=== PATIENT | female | born 1975 | race Caucasian/White ===

== ENCOUNTER 2018-08-22 20:14 | Emergency (ER) | payer OTHER, SELFPAY ==
[2018-08-22 20:14] VITALS: BP 160/74; PULSE 125; RESP 22; TEMP 36.7; O2SAT 97; BMI 43.0
[2018-08-22 20:26] LABS: Bedside Glucose 78 mg/dL (70-110)
--- NOTE | 2018-08-22 20:26 | EKG12_ITS ---
Test Reason : NAUSEA Blood Pressure : / mmHG Vent. Rate : 117 BPM Atrial Rate : 117 BPM P-R Int : 150 ms QRS Dur : 092 ms QT Int : 348 ms P-R-T Axes : 053 002 019 degrees QTc Int : 485 ms Sinus tachycardia Minimal voltage criteria for LVH, may be normal variant Borderline ECG Confirmed by GLENN MORATAYA, MAYRA ([id number]), editor managing director JEFFERY SAENZ ([id number] on 08/25/2018 9:57:19 AM Referred By: MAITE Confirmed By:MAYRA ELIZABETH MD
[2018-08-22] MEDS: 0.9% Normal Saline 1,000 ML 999 ML IV (20:51)
[2018-08-22 21:03] VITALS: BP 127/75; PULSE 102; RESP 18; O2SAT 96
[2018-08-22 21:15] LABS: Bedside Glucose 214 mg/dL (70-110)
[2018-08-22 21:20] LABS: Absolute Lymphocyte Count 8.75 X10^3/ul (0.83-4.51); Absolute Neutrophil Count 7.9 X10^3/uL (2.0-7.7); Basophil# 0.07 X10^3/uL; Basophil% 0.4 % (0-1); Eosinophil# 0.18 X10^3/uL; Hematocrit 43.6 % (37-47); Hemoglobin 14.6 g/dl (12.0-15.0); Lymphocyte # 8.75 X10^3/ul (4.0); Lymphocyte % 48.5 % (19-41); Mean Corp Hgb Conc 33.5 g/gl (32-36); Mean Corpuscular Hgb 28.1 pg (27.0-32.0); Mean Corpuscular Volume 83.8 fL (81-99); Mean Platelet Vol. 11.4 fl (6.2-12.0); Monocyte# 1.09 X10^3/uL; Neutrophil # 7.92 X10^3/uL (2.7-7.7); Neutrophil % 43.9 % (47-70); Platelet Count 397 K/mm3 (150-450); RBC Distribution Width CV 15.2 % (11.6-14.6); RBC Distribution Width SD 46.1 fl (35.1-43.9); White Blood Count 18.1 K/mm3 (4.4-11.0)
[2018-08-22 21:23] LABS: Differential Indicated SCAN CRITERIA MET; POSITIVE COUNT NO; POSITIVE DIFFERENTIAL YES; POSITIVE MORPHOLOGY NO
[2018-08-22 21:24] LABS: Internal QC Validated? YES +Cl - CLEAR BKGD; Pregnancy, Serum, hCG Quali. NEGATIVE Negative
[2018-08-22 21:27] LABS: Anion Gap 6 (5-15); BUN 18 mg/dL (7-18); BUN/Creat Ratio 22.1 RATIO (10-20); Calcium,Total 9.6 mg/dL (8.5-10.1); Chloride 104 mmol/L (98-107); Creatinine, Serum 0.81 mg/dL (0.55-1.02); EST Glomerular Filtration Rate 81 mL/min (>60); Est Glom Filt Rate - Afr Amer 99 mL/min (>60); Estimated Creatinine Clearance 64.33 ml/min; Glucose 94 mg/dL (74-106); Potassium 3.2 mmol/L (3.5-5.1); Sodium Level 140 mmol/L (136-145)
[2018-08-22 21:35] LABS: AST(SGOT) 14 U/L (15-37); Alanine Aminotransfer ALT/SGPT 27 U/L (13-56); Alkaline Phosphatase 128 U/L (45-117); Globulin 4.3 g/dL (2.2-4.2); Protein, Total 8.3 g/dL (6.4-8.2)
[2018-08-22 21:49] LABS: Differential Comment SCANNED; Platelet Estimate ADEQUATE (ADEQ); Reactive Lymphocyte 1+
[2018-08-22 22:10] LABS: Bedside Glucose 120 mg/dL (70-110)
[2018-08-22] MEDS: 0.9% Normal Saline 1,000 ML 150 ML IV (22:18)
[2018-08-22] MEDS: Ondansetron 4 MG/2 ML Vial IV (22:18)
[2018-08-22 22:38] LABS: Bacteria 0 SEEN /hpf (None Seen); Mucous, Urine 0 SEEN /hpf (<or=2+); White Blood Cells 0 SEEN /hpf (0-5)
[2018-08-22 22:39] VITALS: BP 130/73; PULSE 98; RESP 16; O2SAT 97
--- NOTE | 2018-08-22 22:45 | ED.RN ---
CHECKED PT GLUCOSE PER DR. ARORA. SUGAR WAS 124 PT WAS SWEATY AND SAID SHE FELT LIKE IT WAS LOW. GAVE THE PT A APPLE JUICE AND A PEANUT BUTTER SANDWICH. DR. ARORA AWARE OF BLOOD SUGAR. WILL CONTINUE TO MONITOR PT.
--- NOTE | 2018-08-22 22:46 | RAD_ITS ---
STUDY: X-RAY CHEST REASON FOR EXAM: Female, 42 years old. SOB TECHNIQUE: Frontal and lateral views of the chest. COMPARISON: None. FINDINGS: The lungs are clear and expanded. There is no demonstrated pleural abnormality. Normal size heart. Normal mediastinum and torsten. Normal visualized pulmonary arteries. Normal visualized aortic arch and descending thoracic aorta. Normal visualized thoracic spine. Normal visualized ribs, clavicles, and shoulders. Cholecystectomy clips. RAD/Chest PA and Lateral IMPRESSION: No acute pulmonary findings. Electronically Signed: Nino Nick MD at 23:07 EDT Tel , Service support ,
[2018-08-22 22:57] LABS: D-Dimer Quantitative (DVT/PE) 0.41 FEU/ug/m (0.27-0.49)
[2018-08-22 22:58] LABS: Color, Urine Yellow (Yellow); Glucose, Dipstick 1000 mg/dl (Normal); Ketone-Dipstick 5 mg/dl (Negative); Leukocyte Esterase-Dipstick 25 /ul (Negative); Nitrite-Dipstick Negative (Negative); Occult Blood-Urine Negative /ul (Negative); Protein-Dipstick 30 mg/dl (Negative); Specific Gravity, Urine 1.015 (1.002-1.030); Urine Bilirubin Dipstick Negative (Negative); Urine Clarity Clear (Clear); Urine Urobilinogen Normal (Normal); Urine pH 6.5 (5.0 - 8.0)
[2018-08-22 23:01] LABS: Red Blood Cells-Urine 0-5 SEEN /hpf (0-5); Squamous Epithelial Cells - UA 0-5 SEEN /hpf (5-10)
[2018-08-22 23:39] VITALS: BP 103/55; PULSE 92; RESP 16; O2SAT 96
--- NOTE | 2018-08-22 23:44 | ED.VISSUMM ---
- ER Visit Summary Date of Service: 08/22/18 Chief Complaint: Nausea, diaphoresis History of Present Illness: The patient is a 42 F who did not feel well all day today. 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 She is tachycardic and sweaty on arrival to triage. Patient is a diabetic. She was recently started on NovoLog because her blood sugars been running high. She did take insulin about an hour prior to feeling ill tonight. She is her blood sugars were in the 340s and dropped to the 70s. She did have some chest tightness and shortness of breath that has since improved. Physical Examination: Vital signs unremarkable the time of my exam. Patient sitting upright in bed. Heart is regular rate and rhythm. Lung sounds are clear. Abdomen is soft nontender. Skin examination reveals no rash or lesions. Line neuro exam reveals no focal neuro deficits. Test Results: EKG is sinus tach at 117 with no sign of acute ischemia. Two-view chest x-ray is normal. CBC was a white count of 18.1 with predominant lymphocyte count. Chemistry studies reveal mild hypokalemia with potassium 3.2. LFTs significant only for an alk phos of 128. Urinalysis shows 2000 and glucose but no sign of acute infection. Troponin is less than 0.015. D-dimer 0.41. test negative. Influenza swab is negative. Emergency Department Course and Treatment: Patient's blood sugar was 78 when she arrived in triage. She was given orange juice and some peanut butter. Blood sugar then went up to 214. At the time of my exam blood sugar was 120 and she was starting to feel sweaty again. She is given IV fluids, Zofran, and p.o. diet. At this time patient is resting comfortably. She has some mild nausea and a headache. Test results were discussed with her in detail. My suspicion is that she started to feel quite ill and became diaphoretic secondary to the rapid fluctuation in her blood sugar. She will be given Toradol and Zofran for her headache at this time. She will be discharged home. Treatment Plan: [] Disposition: Discharge Impression: 1. Viral syndrome 2. Blood sugar fluctuations This note was generated with [employer] dictation software. It may contain incorrect words, spelling, and punctuation that were not noted in review of the chart prior to signing ED Disposition - Plan for ED Patient: Disposition: Home or Assisted Living Instructions: ED Viral Syndrome Prescriptions: Ondansetron [Zofran Odt] 4 mg PO Q8H PRN PRN #10 tablet PRN Reason: Nausea Referrals: Jackie Iniguez DO [Primary Care Provider] - 3-5 Days if not improving
[2018-08-23] VITALS: BP 101/52; PULSE 85; RESP 17; O2SAT 95
[2018-08-23] MEDS: Ketorolac 30 MG/ML Syringe IV
[2018-08-23] MEDS: Ondansetron 4 MG/2 ML Vial IV
[2018-08-23 00:27] VITALS: BP 101/52; PULSE 86; RESP 16
== END 2018-08-23 00:32 | disposition home or self-care (01) ==
PROVIDERS: Emergency Provider Emergency Medicine; Family Provider Internal Medicine; PCP Internal Medicine
DX: B34.9 Viral infection, unspecified (principal); E11.9 Type 2 diabetes mellitus without complications; Z79.4 Long term (current) use of insulin; F32.9 Major depressive disorder, single episode, unspecified; Z72.0 Tobacco use
CPT/HCPCS: 71046; 80048; 80076; 81001; 82962; 84484; 84703; 85025; 85379; 87804; 93005; 96361; 96374; 96375; 99284; J7030; A4216; J2405

== ENCOUNTER 2018-12-20 07:31 | Day surgery (SDC) | payer OTHER, SELFPAY ==
[2018-12-19 13:28] VITALS: BMI 44.7
[2018-12-19 17:03] LABS: Anion Gap 9 (5-15); BUN 12 mg/dL (7-18); BUN/Creat Ratio 14.2 RATIO (10-20); Calcium,Total 8.6 mg/dL (8.5-10.1); Chloride 105 mmol/L (98-107); Creatinine, Serum 0.85 mg/dL (0.55-1.02); EST Glomerular Filtration Rate 78 mL/min (>60); Est Glom Filt Rate - Afr Amer 94 mL/min (>60); Glucose 296 mg/dL (74-106); Potassium 4.4 mmol/L (3.5-5.1); Sodium Level 139 mmol/L (136-145)
[2018-12-19 17:10] LABS: International Normalized Ratio 0.9; Prothrombin Time (Protime)PT. 12.2 SECONDS (11.7-14.9)
[2018-12-19 17:11] LABS: Partial Thromboplast Time 27.7 Seconds (24.1-36.2)
[2018-12-19 17:16] LABS: Absolute Lymphocyte Count 2.54 X10^3/uL (0.83-4.51); Absolute Neutrophil Count 6.7 X10^3/uL (2.0-7.7); Basophil# 0.06 X10^3/uL; Basophil% 0.6 % (0-1); Eosinophil# 0.08 X10^3/uL; Eosinophils% 0.8 % (0-5); Hematocrit 38.9 % (37-47); Hemoglobin 12.4 g/dL (12.0-15.0); Lymphocyte # 2.54 X10^3/ul (4.0); Lymphocyte % 25.2 % (19-41); Mean Corp Hgb Conc 31.9 g/dL (32-36); Mean Corpuscular Hgb 27.1 pg (27.0-32.0); Mean Corpuscular Volume 85.1 fL (81-99); Mean Platelet Vol. 11.7 fl (6.2-12.0); Monocyte# 0.64 X10^3/uL; Monocyte% 6.3 % (0-10); NRBC Flagged by Analyzer 0 % (0-5); Neutrophil # 6.72 X10^3/uL (2.7-7.7); Neutrophil % 66.7 % (47-70); Platelet Count 336 K/mm3 (150-450); RBC Distribution Width CV 14.6 % (11.6-14.6); RBC Distribution Width SD 45.1 fl (35.1-43.9); Red Blood Count 4.57 M/mm3 (4.2-5.4); White Blood Count 10.1 K/mm3 (4.4-11.0)
[2018-12-20 06:49] VITALS: BMI 45.7
[2018-12-20 07:54] LABS: Internal QC Validated? YES +Cl - CLEAR BKGD; Pregnancy, Serum, hCG Quali. NEGATIVE Negative
--- NOTE | 2018-12-20 11:59 | CL.D_ITS ---
Patient Name: GOLDEN CULP Study Date: 12/20/2018 Performing: Christa Osuna MD Ht: 59.84 inches 152 cm : 1975 Wt: 226.79 lbs 102.87 kg Age: 43 Gender: female BSA: 1.97 PROCEDURE(S) PERFORMED GE95-MKU/COR/LV CLINICAL PROFILE AND INDICATIONS Indications: Suspected CAD Heart Failure: None Stress/Imaging Stress Test w/SPECT MPI: Yes Result: NegativeStress Test with SPECT MPI: Negative CAD Presentations: Unstable angina. CONCLUSIONS Non obstructive coronary arteries. Preserved EF. No significant or MR RECOMMENDATIONS DESCRIPTION OF PROCEDURE The patient arrived to the procedure lab. The risks and benefits of the procedure as well as a full d escription of our services here and current unavailability of surgical backup were fully explained to the patient and/or their significant other prior to the catheterization. The Timeout was completed, verifying the correct patient and procedure. The patient's procedural site was prepped and draped in the usual fashion. Local anesthetic was given subcutaneously to right radial region with Lidocaine 2% . Using a modified Seldinger technique, arterial access was obtained via the right radial artery, a 6 Fr sheath was inserted. LV to AO pullback pressures were then recorded. Left Coronary Artery selecti ve angiography was performed in multiple views using a 5 Fr. JL3.5 catheter. Left Ventriculography wa s performed in BILLS projection using a 5 Fr. JR 4.0. Right Coronary Artery selective angiography was t hen performed in multiple views using a 5 Fr. JR 4 catheter.The arterial sheath was pulled and a TR Band was applied for hemostasis 10 air inserted CORONARY ANGIOGRAPHY DOMINANCE: Right Dominant LEFT HEART ASSESSMENT Left Ventricular Ejection Fraction: by LV Gram 60 % Normal LV wall motion LEFT MAIN: Mild luminal irregularities LEFT ANTERIOR DESCENDING ARTERY: Mild luminal irregularities CIRCUMFLEX ARTERY: Mild luminal irregularities RIGHT CORONARY ARTERY: mild diffuse disease VALVE FINDINGS: No Aortic Valve Stenosis No Mitral Insufficency COMPLICATIONS No Complications PROCEDURE MEDICATIONS Fentanyl 50 mcg IV Versed 1 mg IV Oxygen: 2 L/min via nasal cannula Heparin given IA 12/20/2018 11:23:26 Verapamil 2.5mg, Ntg 100mcgs, 2000 units of Heparin given IA 12/20/2018 11:23:26 SUMMARY OF HEMODYNAMIC DATA Time AIR REST ECG 08:09:13 LV 138/-3, 23 11:26:30 LV 129/-2, 18 11:27:09 LVp 145/-6, 25 11:27:20 AOp 133/76 (98) 11:27:25 AO 111/81 (95) SA 11:28:39 Signed By Christa Osuna MD On 12/20/2018 11:58:37 AM Christa Osuna MD
== END 2018-12-20 13:30 | disposition home or self-care (01) ==
LOC: CLSP 07:33
PROVIDERS: Family Provider Internal Medicine; PCP Internal Medicine; Referring Provider Specialist; Visit Provider Specialist
DX: R07.9 Chest pain, unspecified (principal); R06.02 Shortness of breath; R53.83 Other fatigue; F41.9 Anxiety disorder, unspecified; E11.9 Type 2 diabetes mellitus without complications; R53.82 Chronic fatigue, unspecified; E28.2 Polycystic ovarian syndrome; F17.200 Nicotine dependence, unspecified, uncomplicated
CPT/HCPCS: 36415; 80048; 84703; 85025; 85610; 85730; 93458; 99152; 99153; J7040; Q9967; C1769; C1894

== ENCOUNTER 2019-04-01 15:30 | Emergency (ER) | payer OTHER, SELFPAY ==
[2019-01-25 13:07] VITALS: BMI 44.1
[2019-04-01 15:31] VITALS: BP 143/86; PULSE 105; RESP 20; TEMP 36.9; O2SAT 97; BMI 40.4
--- NOTE | 2019-04-01 16:04 | ED.VISSUMM ---
- ER Visit Summary Date of Service: 04/01/19 Chief Complaint: Right labial abscess History of Present Illness: The patient is a 43 F history of insulin-dependent diabetes, polycystic ovarian syndrome and abscesses. Since Wednesday almost a week ago she is had an abscess in her right labial area. On Wednesday she went to a local emergency department they attempted to I&D this and were unsuccessful. They started on antibiotics Bactrim and Keflex. She said it has not made much improvement. He denies any fever. No chills. Physical Examination: Middle-aged female no acute distress. present in the room. Vital signs are stable afebrile. She does not look septic or toxic. HEENT exam unremarkable. Lungs clear to auscultation. Heart regular rhythm no murmur. Abdomen is soft and nontender. Normal bowel sounds no peritoneal signs. She is moving all 4 extremities. Neurovascular intact. Skin is unremarkable. External exam with her present in room and she has a firm indurated area of her right labia consistent with a labial abscess except it is hard there is no fluctuance at all. There is no cellulitis. There is no necrotizing breakdown of the skin. Not warm to the touch. There is no bleeding. There is an area where there was an incision previously. Which is healed. Test Results: None Emergency Department Course and Treatment: History and exam are consistent with a right labial abscess but currently is not fluctuant there is already been 1 unsuccessful I&D. She is already on antibiotics both Keflex and Bactrim. She will continue with those. And follow-up with a local experimental mechanic electrical for further evaluation and possible resection. Treatment Plan: [place] for pain. Motrin. Warm soaks. Continue the Keflex and Bactrim. Follow-up with a local RATE EXAMINER. Disposition: Discharge Impression: Right labia majora abscess This note was generated with [employer] dictation software. It may contain incorrect words, spelling, and punctuation that were not noted in review of the chart prior to signing ED Disposition - Plan for ED Patient: Referrals: Jackie Iniguez DO [Primary Care Provider] -
--- NOTE | 2019-04-01 16:08 | ED.DEP ---
ED Disposition - Plan for ED Patient: Disposition: Home or Assisted Living Instructions: [facility] (I and D) Prescriptions: Hydrocodone/Acetaminophen [[place] 10-325 Tablet] 1 ea PO Q4H PRN PRN #14 tab PRN Reason: Pain Or Fever Prescription Printed Referrals: Luanne Mendiola MD [STAFF PHYSICIAN] - As soon as possible Additional Instructions: Warm compresses or soaks to the area. Motrin and limited [place] for pain. Continue both your Keflex and Bactrim. Follow-up with a local CUSTOMER SOLUTIONS COORDINATOR physician or the physician that you were previously referred to. This may need formal surgical resection. At this time there is nothing to really incise and drain.
[2019-04-01 16:20] VITALS: RESP 18
== END 2019-04-01 16:25 | disposition home or self-care (01) ==
PROVIDERS: Emergency Provider Emergency Medicine; Family Provider Internal Medicine; PCP Internal Medicine
DX: N76.4 Abscess of vulva (principal); E11.9 Type 2 diabetes mellitus without complications; Z79.4 Long term (current) use of insulin; E28.2 Polycystic ovarian syndrome
CPT/HCPCS: 99282

== ENCOUNTER 2019-04-22 22:10 | Emergency (ER) | payer OTHER, SELFPAY ==
[2019-04-22 22:11] VITALS: BP 133/80; PULSE 93; RESP 18; TEMP 36.8; O2SAT 96; BMI 44.3
--- NOTE | 2019-04-22 22:26 | EKG12_ITS ---
Test Reason : HYPERGLYCEMIA Blood Pressure : / mmHG Vent. Rate : 090 BPM Atrial Rate : 090 BPM P-R Int : 146 ms QRS Dur : 090 ms QT Int : 372 ms P-R-T Axes : 057 045 037 degrees QTc Int : 455 ms Normal sinus rhythm Normal ECG Confirmed by JEAN CLAUDE MORATAYA, JOHN ([id number]), city editor CASSANDRA KOENIG ([id number]) on 04/25/2019 10:03:08 AM Referred By: DC Confirmed By:JOHN SILVERIO MD
--- NOTE | 2019-04-22 22:30 | RAD_ITS ---
HISTORY:high blood sugar, bilateral rib pain high blood sugar, bilateral rib pain EXAMINATION/TECHNIQUE: XR Chest 1 View: COMPARISON: August 22, 2018 FINDINGS: LINES/DEVICES: None. LUNGS: No consolidation, edema or effusion. No pneumothorax. MEDIASTINUM AND CARDIOVASCULAR STRUCTURES: Cardiac silhouette not enlarged. Central airways and mediastinal contour are unremarkable. BONES AND SOFT TISSUES: Unremarkable. RAD/Chest 1 View (Portable) IMPRESSION: No radiographic evidence of acute cardiopulmonary disease. at 2310 Reported and signed by: Joeclynn Che DO Electronically Signed: Jocelynn Che DO at 23:09 EST Tel , Service support ,
[2019-04-22 22:36] LABS: Bedside Glucose > 500 mg/dL (70-110)
[2019-04-22 22:39] LABS: Absolute Lymphocyte Count 3.31 X10^3/uL (0.83-4.51); Absolute Neutrophil Count 5.1 X10^3/uL (2.0-7.7); Basophil# 0.06 X10^3/uL; Basophil% 0.7 % (0-1); Eosinophil# 0.12 X10^3/uL; Eosinophils% 1.3 % (0-5); Hematocrit 36.7 % (37-47); Hemoglobin 11.6 g/dL (12.0-15.0); Lymphocyte # 3.31 X10^3/ul (4.0); Lymphocyte % 36.1 % (19-41); Mean Corp Hgb Conc 31.6 g/dL (32-36); Mean Corpuscular Hgb 25.7 pg (27.0-32.0); Mean Corpuscular Volume 81.4 fL (81-99); Mean Platelet Vol. 11.3 fl (6.2-12.0); Monocyte% 6.5 % (0-10); NRBC Flagged by Analyzer 0 % (0-5); Neutrophil # 5.06 X10^3/uL (2.7-7.7); Neutrophil % 55.1 % (47-70); Platelet Count 321 K/mm3 (150-450); RBC Distribution Width SD 47.7 fl (35.1-43.9); Red Blood Count 4.51 M/mm3 (4.2-5.4); White Blood Count 9.2 K/mm3 (4.4-11.0)
[2019-04-22 22:45] LABS: Internal QC Validated? YES +Cl - CLEAR BKGD; Pregnancy, Serum, hCG Quali. NEGATIVE Negative
[2019-04-22] MEDS: 0.9% Normal Saline 1,000 ML 999 ML IV ×2 (22:58→23:47)
[2019-04-22] MEDS: Insulin Lispro 100 UNIT/ML INSULN.PEN 8 UNIT SC (22:58)
[2019-04-22 23:02] LABS: Anion Gap 9 (5-15); BUN 12 mg/dL (7-18); BUN/Creat Ratio 13.3 RATIO (10-20); Calcium,Total 8.9 mg/dL (8.5-10.1); Chloride 102 mmol/L (98-107); EST Glomerular Filtration Rate 72 mL/min (>60); Est Glom Filt Rate - Afr Amer 88 mL/min (>60); Glucose 500 mg/dL (74-106); Potassium 3.9 mmol/L (3.5-5.1); Sodium Level 136 mmol/L (136-145)
[2019-04-22 23:46] LABS: Bedside Glucose 433 mg/dL (70-110)
--- NOTE | 2019-04-23 00:30 | ED.DCSUM_ITS ---
- ER Visit Summary Date of Service: 04/23/19 Chief Complaint: Not feeling well History of Present Illness: The patient is a 43 F who is not feeling well today. She has a headache, malaise, and bilateral rib pain. Her blood sugar was 585. She does have a history of diabetes. She takes Janumet, glipizide, and Lantus. She took her Lantus yesterday evening, 15 units. She said her sugar normally only runs about 218 max. She does not take sliding scale or short acting insulin as she gets hypoglycemic. No other associated symptoms or issues. Physical Examination: Afebrile and vital signs unremarkable. Head and neck atraumatic. Cranial nerves grossly intact. Heart regular. Lungs clear. Abdomen soft. Skin normal. No focal or lateralizing neurologic abnormalities grossly. Test Results: EKG shows sinus rhythm at a rate of 90. Troponin negative. Chest x-ray showed nothing acute. Hemoglobin 11.6. Glucose 500. Anion gap normal. Ketones negative. hCG negative. Emergency Department Course and Treatment: Patient was treated with a fluid bolus as well as lispro subcutaneous. I suspect her symptoms are related to her hypoglycemia. She may also be coming down with something that is causing her to be hyperglycemic. She has no specific symptoms of any other illness. On reevaluation, blood sugar is in the 430s. She feels slightly better. She declined any pain medicine. We will recheck her glucose after the second bolus. She is hyperglycemic but otherwise her work-up is reassuring. There is no indication for further diagnostic testing. If her repeat glucose is in the 200s, she may be di scharged. She may resume her home medication. She should follow-up with her primary doctor for further outpatient management. The oncoming doctor will recheck her. She may require additional fluids and or insulin. Final disposition is pending at the time of this dictation. Treatment Plan: As above Disposition: Discharge pending blood sugar control Impression: 1. Hyperglycemia This note was generated with [employer] software. It may contain incorrect words, spelling, and punctuation that were not noted in review of the chart prior to signing ED Disposition - Plan for ED Patient: Referrals: Jackie Iniguez DO [Primary Care Provider] -
--- NOTE | 2019-04-23 00:33 | ED.DEP ---
ED Disposition - Plan for ED Patient: Instructions: ED Diabetic Hyperglycemia Referrals: Jackie Iniguez DO [Primary Care Provider] -
[2019-04-23 00:40] VITALS: BP 145/84; PULSE 84; RESP 20; O2SAT 95
[2019-04-23 00:41] LABS: Bedside Glucose 328 mg/dL (70-110)
[2019-04-23] MEDS: Insulin Lispro 100 UNIT/ML INSULN.PEN SC (00:42)
[2019-04-23] MEDS: 0.9% Normal Saline 1,000 ML 999 ML IV (00:52)
[2019-04-23 02:20] VITALS: BP 150/88; PULSE 85; RESP 16; O2SAT 93
[2019-04-23 02:36] LABS: Bedside Glucose 228 mg/dL (70-110)
[2019-04-23 02:41] VITALS: BP 116/60; PULSE 91; RESP 16; O2SAT 99
== END 2019-04-23 02:42 | disposition home or self-care (01) ==
LOC: ED 22:43
PROVIDERS: Emergency Provider Emergency Medicine; Family Provider Internal Medicine; PCP Internal Medicine
DX: E11.65 Type 2 diabetes mellitus with hyperglycemia (principal); F41.9 Anxiety disorder, unspecified; E28.2 Polycystic ovarian syndrome; Z87.19 Personal history of other diseases of the digestive system; Z79.4 Long term (current) use of insulin; Z79.84 Long term (current) use of oral hypoglycemic drugs; Z79.899 Other long term (current) drug therapy
CPT/HCPCS: 71045; 80048; 82009; 82962; 84484; 84703; 85025; 93005; 96360; 96361; 99284; J7030; A4216

== ENCOUNTER 2019-05-11 17:15 | Emergency (ER) | payer OTHER, SELFPAY ==
[2019-05-11 17:16] VITALS: BP 137/82; PULSE 96; RESP 15; TEMP 36.6; O2SAT 97; BMI 42.6
[2019-05-11 17:29] VITALS: O2SAT 16
[2019-05-11] MEDS: Clindamycin HCl 150 MG Capsule 450 MG PO (17:45)
--- NOTE | 2019-05-11 19:15 | ED.DCSUM_ITS ---
- ER Visit Summary Date of Service: 05/11/19 Chief Complaint: Abscess History of Present Illness: The patient is a 43 F with history of diabetes. Presents with a right labial abscess for 2 days. She has a history of pilonidal cyst. Physical Examination: Exam was chaperoned by Natalie AKHTAR. She has a right labial abscess approximately 5 x 2 cm. This does not involve the vagina or other structures. She has some induration to her sacral region without fluctuance or redness. Rectal exam was unremarkable for abscess, mass, or drainage. Test Results: None indicated Emergency Department Course and Treatment: I&D was performed of the right labial abscess. Pus was expressed. Wound was dressed. She was treated with clindamycin. Regarding the induration at her sacral region. She has a history of pilonidal cyst. There is some induration without fluctuance. I suspect that she has some scar tissue or chronic skin changes. I do not believe this is amenable to drainage in the ED. Patient will watch her blood sugars. Treat with clindamycin. Soaks. Follow-up with SHELLFISH DREDGE OPERATOR. Return for any new or worsening issues. Treatment Plan: As above Disposition: Discharge Impression: 1. Right labial abscess This note was generated with [employer] dictation software. It may contain incorrect words, spelling, and punctuation that were not noted in review of the chart prior to signing ED Disposition - Plan for ED Patient: Referrals: Jackie Iniguez DO [Primary Care Provider] -
[2019-05-11 19:16] VITALS: RESP 16
--- NOTE | 2019-05-11 19:17 | ED.DEP ---
ED Disposition - Plan for ED Patient: Instructions: ABSCESS, Incision and Drainage Prescriptions: Clindamycin [Cleocin] 300 mg PO 4X/DAY #80 cap Prescription Printed Referrals: Jackie Iniguez DO [Primary Care Provider] -
== END 2019-05-11 19:25 | disposition home or self-care (01) ==
LOC: ED 17:58
PROVIDERS: Emergency Provider Emergency Medicine; PCP Internal Medicine; Referring Provider Internal Medicine
DX: N76.4 Abscess of vulva (principal); E11.9 Type 2 diabetes mellitus without complications; Z72.0 Tobacco use; Z79.4 Long term (current) use of insulin
CPT/HCPCS: 56405; 99283

== ENCOUNTER 2019-06-24 15:38 | Emergency (ER) | payer OTHER, SELFPAY ==
[2019-06-24 15:39] VITALS: BP 148/83; PULSE 108; RESP 18; TEMP 36.6; O2SAT 98; BMI 41.3
[2019-06-24 15:41] VITALS: BP 148/83; PULSE 108; RESP 18; TEMP 36.6; O2SAT 98
--- NOTE | 2019-06-24 15:56 | ED.VIS.URI ---
History of Present Illness <LiamFortunatoAbelardo - Last Filed: 06/24/19 17:34> Informant: Patient, Significant Other Onset: Weeks - 1 week Context: Gradual Onset Timing: Continuous Quality: aching Location: myalgias Current Severity: Moderate Maximum Severity: Moderate Worsened by: Swallowing Relieved by: Tylenol, NSAIDs Associated Symptoms: Nasal Congestion, Headache, Myalgias, Nausea, Nonproductive cough. Negative for: Vomiting, Diarrhea, Shortness of Breath, Chest Pain, Hemoptysis, Productive Cough Narrative: 43-year-old female history of insulin-dependent diabetes presents with nausea, headache, nonproductive cough, sore throat and myalgias for the last 1 week. She is actually a local emergency service worker. She has been using [id number] remedies without improvement. She has not had chest pain or shortness of breath. She is not lightheaded or dizzy. Denies nausea vomiting or diarrhea. Sugars have been slightly elevated with most recent one this morning being 290. She has had many sick contacts. Rest of review of systems negative Prior similar symptoms: No Recent Illness/Hospitalization: No <Darek Cruz - Last Filed: 06/24/19 17:40> Chief Complaint: General Illness Past Medical History <Abelardo Wheeler - Last Filed: 06/24/19 17:34> Prior records reviewed: Yes Past Medical History: - - Hypertension, hyperlipidemia, GERD, insulin-dependent diabetes Surgical History: no surgical history Lives: With Family Smoking Status: Former smoker Alcohol: Occasional Drugs: None <Darek Cruz - Last Filed: 06/24/19 17:40> - Allergies and Home Meds Allergies/Adverse Reactions: Allergies acetaminophen [From Percocet] Allergy (Intermediate, Verified 06/24/19 15:41) Rash cefaclor [From Ceclor] Allergy (Intermediate, Verified 06/24/19 15:41) Rash hydrocodone [From Vicodin] Allergy (Intermediate, Verified 06/24/19 15:41) Rash oxycodone [From Percocet] Allergy (Intermediate, Verified 06/24/19 15:41) Rash Primary Care Physician: Jackie Iniguez DO [Primary Care Provider] - 10-14 Days if not better Review of Systems All systems negative except as indicated General: Reports: Chills, Fever, Malaise Eyes: Denies: Visual changes - bilaterally, Blurred Vision - bilaterally, Diplopia ENT: Reports: Rhinorrhea, Sore throat Cardiovascular: Denies: Chest pain, Palpitations, Heart racing Respiratory: Reports: Cough. Denies: Dyspnea, Dyspnea on exertion, Orthopnea, Paroxysmal nocturnal dyspnea Gastrointestinal: Denies: Abdominal pain, Nausea, Vomiting, Diarrhea, Constipation Genitourinary: Denies: Dysuria, Hematuria, Frequency Musculoskeletal: Reports: Myalgias. Denies: Arthralgias, Neck pain, Back pain, Swelling, Extremity Pain Skin: Denies: Rash, Abscess, Abrasions, Wounds Neurological: Reports: Headache. Denies: Weakness, Parasthesia Hematologic: Denies: Easy bruising, Easy bleeding <Darek Cruz - Last Filed: 06/24/19 17:40> Physical Exam Vital Signs/Narrative: Vital Signs Temp Pulse Resp BP Pulse Ox 06/24/19 16:41 98.1 F 105 H 18 98 06/24/19 15:41 97.9 F 108 H 18 148/83 H 98 06/24/19 15:39 97.9 F 108 H 18 148/83 H 98 <Abelardo Wheeler - Last Filed: 06/24/19 17:34> Vital Signs/Narrative: Vital Signs Temp Pulse Resp BP Pulse Ox 06/24/19 15:41 97.9 F 108 H 18 148/83 H 98 06/24/19 15:39 97.9 F 108 H 18 148/83 H 98 Inital Vital Signs reviewed: Yes General: Well nourished, Well developed Head: Normocephalic, Atraumatic Eyes: Perrl, EOMI Ears: Normal external canal, TM's clear Nose: Normal Inspection, No Rhinorrhea Mouth/Throat: Airway Patent, Posterior Oropharyngeal Erythema Neck: Supple, Nontender, No Lymphadenopathy, No Meningismus Cardiovascular: Regular rate, Regular rhythm, No murmurs Respiratory: No distress, CTA bilaterally, Chest nontender Abdomen: Soft, Nontender, Nondistended, Normal bowel sounds, No masses Back: Nontender, Normal Inspection Extremities: Nontender, No edema Skin: Normal color, No rash, No Trauma Neurological: Alert, Oriented x3, Cranial nerves II-XII grossly intact, Normal Strength, Normal Sensation Psychological: Normal affect, Normal Mood <Darek Cruz - Last Filed: 06/24/19 17:40> Diagnostic/Tx/Re-eval Impressions Chest X-Ray 06/24/19 15:57 IMPRESSION: Normal x-ray examination of the chest. Electronically Signed: Oz Harper, at 16:16 EST Tel , Service support , 06/24/19 15:57 Chest 1 View (Portable) [RAD] Stat Laboratory Results 06/24/19 06/24/19 06/24/19 16:05 16:05 16:38 WBC 9.7 RBC 5.14 Hgb 13.7 Hct 43.1 MCV 83.9 MCH 26.7 L MCHC 31.8 L RDW Std Deviation 51.0 H RDW Coeff of Nidhi 16.6 H Plt Count 404 MPV 10.4 Immature Gran % (Auto) 0.400 Neut % (Auto) 56.8 Lymph % (Auto) 35.7 Walker % (Auto) 5.7 Eos % (Auto) 0.9 Baso % (Auto) 0.5 Absolute Neuts (auto) 5.5 Absolute Lymphs (auto) 3.47 Nucleated RBC % 0 Sodium 141 Potassium 4.1 Chloride 110 H Carbon Dioxide 27.0 Anion Gap 4 L BUN 9 Creatinine 0.72 Estim Creat Clear Calc 71.62 Est GFR (MDRD) Af Amer 113 Est GFR (MDRD) Non-Af 93 BUN/Creatinine Ratio 12.5 Glucose 89 Calcium 9.3 Urine Color Yellow Urine Clarity Clear Urine pH 7.0 Ur Specific Advance 1.015 Urine Protein 15 H Urine Glucose (UA) 1000 H Urine Ketones 5 H Urine Occult Blood Negative Urine Nitrite Negative Urine Bilirubin Negative Urine Urobilinogen 1 H Ur Leukocyte Esterase Negative Urine RBC 0 SEEN Urine WBC 0 SEEN Ur Squamous Epith Cells 0-5 SEEN Urine Bacteria 0 SEEN Urine Mucus 0 SEEN - Medical Decision Making Seen and evaluated independently and in conjunction with physician administrative assistant. Agree with notes above unless documented otherwise. Lungs clear to auscultation throughout. After treatment, patient is feeling better, still just malaised. Her headache is better. She was hydrated, her work-up is unremarkable. Suspect she has a viral syndrome other than influenza given the duration of symptoms for 1.5 weeks. Supportive care advised and hydration, we discussed reasons to return and she is comfortable with that plan given a work note at discharge. <Abelardo Wheeler - Last Filed: 06/24/19 17:34> ED Disposition <Abelardo Wheeler - Last Filed: 06/24/19 17:34> <Darek Cruz - Last Filed: 06/24/19 17:40> - Plan for ED Patient: Disposition: Home or Assisted Living Diagnosis: Viral syndrome Instructions: VIRAL SYNDROME (Adult) Referrals: Jackie Iniguez, DO [Primary Care Provider] - 10-14 Days if not better
--- NOTE | 2019-06-24 15:57 | RAD_ITS ---
STUDY: X-RAY CHEST REASON FOR EXAM: Female, 43 years old. FEVER, COUGH, WEAKNESS, FATIGUE TECHNIQUE: Portable chest COMPARISON: 04/22/2019. FINDINGS: The lungs are clear and expanded. There is no demonstrated pleural abnormality. Normal size heart. Normal mediastinum and torsten. Normal visualized pulmonary arteries. Normal visualized aortic arch and descending thoracic aorta. Normal visualized thoracic spine. Normal visualized ribs, clavicles, and shoulders. There is no demonstrated abnormality of the visualized soft tissue structures of the upper abdomen. RAD/Chest 1 View (Portable) IMPRESSION: Normal x-ray examination of the chest. Electronically Signed: Oz Harper, at 16:16 EST Tel , Service support ,
[2019-06-24 16:14] LABS: Absolute Lymphocyte Count 3.47 X10^3/uL (0.83-4.51); Absolute Neutrophil Count 5.5 X10^3/uL (2.0-7.7); Basophil# 0.05 X10^3/uL; Basophil% 0.5 % (0-1); Eosinophil# 0.09 X10^3/uL; Eosinophils% 0.9 % (0-5); Hematocrit 43.1 % (37-47); Hemoglobin 13.7 g/dL (12.0-15.0); Lymphocyte # 3.47 X10^3/ul (4.0); Lymphocyte % 35.7 % (19-41); Mean Corp Hgb Conc 31.8 g/dL (32-36); Mean Corpuscular Hgb 26.7 pg (27.0-32.0); Mean Corpuscular Volume 83.9 fL (81-99); Mean Platelet Vol. 10.4 fl (6.2-12.0); Monocyte# 0.55 X10^3/uL; Monocyte% 5.7 % (0-10); NRBC Flagged by Analyzer 0 % (0-5); Neutrophil # 5.51 X10^3/uL (2.7-7.7); Neutrophil % 56.8 % (47-70); Platelet Count 404 K/mm3 (150-450); RBC Distribution Width CV 16.6 % (11.6-14.6); Red Blood Count 5.14 M/mm3 (4.2-5.4); White Blood Count 9.7 K/mm3 (4.4-11.0)
[2019-06-24] MEDS: 0.9% Normal Saline 1,000 ML 999 ML IV ×2 (16:15→17:38)
[2019-06-24] MEDS: DiphenhydrAMINE 50 MG/ML Syringe IV (16:16)
[2019-06-24] MEDS: Ketorolac 30 MG/ML Syringe IV (16:16)
[2019-06-24] MEDS: Metoclopramide 10 MG/2 ML Vial IV (16:16)
[2019-06-24 16:31] LABS: Anion Gap 4 (5-15); BUN 9 mg/dL (7-18); BUN/Creat Ratio 12.5 RATIO (10-20); Calcium,Total 9.3 mg/dL (8.5-10.1); Chloride 110 mmol/L (98-107); Creatinine, Serum 0.72 mg/dL (0.55-1.02); EST Glomerular Filtration Rate 93 mL/min (>60); Est Glom Filt Rate - Afr Amer 113 mL/min (>60); Estimated Creatinine Clearance 71.62 ml/min; Glucose 89 mg/dL (74-106); Potassium 4.1 mmol/L (3.5-5.1); Sodium Level 141 mmol/L (136-145)
[2019-06-24 16:41] VITALS: PULSE 105; RESP 18; TEMP 36.7; O2SAT 98
[2019-06-24 16:43] LABS: Bacteria 0 SEEN /hpf (None Seen); Mucous, Urine 0 SEEN /hpf (<or=2+); Red Blood Cells-Urine 0 SEEN /hpf (0-5); White Blood Cells 0 SEEN /hpf (0-5)
[2019-06-24 16:44] LABS: Color, Urine Yellow (Yellow); Glucose, Dipstick 1000 mg/dl (Normal); Ketone-Dipstick 5 mg/dl (Negative); Leukocyte Esterase-Dipstick Negative /ul (Negative); Nitrite-Dipstick Negative (Negative); Occult Blood-Urine Negative /ul (Negative); Protein-Dipstick 15 mg/dl (Negative); Specific Gravity, Urine 1.015 (1.002-1.030); Urine Bilirubin Dipstick Negative (Negative); Urine Clarity Clear (Clear); Urine Urobilinogen 1 mg/dl (Normal)
[2019-06-24 16:51] LABS: Squamous Epithelial Cells - UA 0-5 SEEN /hpf (5-10)
[2019-06-24 17:00] VITALS: PULSE 95; RESP 18; TEMP 36.6; O2SAT 98
[2019-06-24 17:39] VITALS: BP 102/58; PULSE 90; RESP 18; TEMP 36.6; O2SAT 95
[2019-06-24 18:00] VITALS: BP 102/58; PULSE 90; RESP 18; TEMP 36.6; O2SAT 95
== END 2019-06-24 18:43 | disposition home or self-care (01) ==
PROVIDERS: Emergency Provider Physician Assistant Medical; PCP Internal Medicine
DX: B34.9 Viral infection, unspecified (principal); E11.9 Type 2 diabetes mellitus without complications; E78.5 Hyperlipidemia, unspecified; I10 Essential (primary) hypertension; K21.9 Gastro-esophageal reflux disease without esophagitis; Z79.4 Long term (current) use of insulin; Z79.899 Other long term (current) drug therapy; Z87.891 Personal history of nicotine dependence
CPT/HCPCS: 71045; 80048; 81001; 85025; 96361; 96374; 96375; 99282; J7030; A4216

== ENCOUNTER 2019-06-25 15:02 | Emergency (ER) | payer OTHER, SELFPAY ==
[2019-06-24 15:39] VITALS: BMI 41.3
[2019-06-25] VITALS (7 sets, daily range): BP systolic 123–148; BP diastolic 70–95; PULSE 73–84; RESP 11–19; TEMP 37.2; O2SAT 95–99; BMI 41.3
--- NOTE | 2019-06-25 15:21 | EKG12_ITS ---
Test Reason : CP Blood Pressure : / mmHG Vent. Rate : 079 BPM Atrial Rate : 079 BPM P-R Int : 148 ms QRS Dur : 082 ms QT Int : 384 ms P-R-T Axes : 051 018 031 degrees QTc Int : 440 ms Normal sinus rhythm Normal ECG Confirmed by JEAN CLAUDE MORATAYA, JOHN ([id number]), technical writer and editor CASSANDRA KOENIG ([id number]) on 06/26/2019 10:20:00 AM Referred By: Confirmed By:JOHN SILVERIO MD
--- NOTE | 2019-06-25 15:25 | RAD_ITS ---
STUDY: X-RAY CHEST REASON FOR EXAM: Female, 43 years old. COUGH, CHEST PAIN TECHNIQUE: Single AP portable view of the chest. COMPARISON: 06/24/2019 FINDINGS: The lungs are clear and expanded. There is no demonstrated pleural abnormality. Normal size heart. Normal mediastinum and torsten. Normal visualized pulmonary arteries. Normal visualized aortic arch and descending thoracic aorta. Normal visualized thoracic spine. Normal visualized ribs, clavicles, and shoulders. There is no demonstrated abnormality of the visualized soft tissue structures of the upper abdomen. RAD/Chest 1 View (Portable) IMPRESSION: Normal x-ray examination of the chest. Electronically Signed: Sesar Gant DO at 15:56 EST Tel , Service support ,
--- NOTE | 2019-06-25 15:25 | ED.VIS.GEN ---
History of Present Illness Chief Complaint: Palpitations Informant: Patient Onset: Today Current Severity: Moderate Maximum Severity: Moderate Narrative: Patient has history of palpitations with PACs. She states today she felt that they are more frequent and not going away. She then developed tightness between her shoulder blades and in her anterior chest. She states pain does radiate up into her left jaw. Patient was seen in the ER yesterday for viral syndrome that she has been dealing with for the past week and a half. Flu swab was negative. Blood work was unremarkable. Patient does report a history of palpitations with PACs. She had a heart cath in November 2018 that showed mild luminal irregularities. EF was 60%. She also wore a Holter monitor for a month with no evidence of significant arrhythmia. - Past Medical History (1) Anxiety Status: Chronic (2) Diabetes Status: Chronic (3) Pancreatitis Status: Resolved (4) Hx of cholecystectomy Status: Chronic Past Medical History - Allergies and Home Meds Allergies/Adverse Reactions: Allergies acetaminophen [From Percocet] Allergy (Intermediate, Verified 06/25/19 15:11) Rash cefaclor [From Ceclor] Allergy (Intermediate, Verified 06/25/19 15:11) Rash hydrocodone [From Vicodin] Allergy (Intermediate, Verified 06/25/19 15:11) Rash oxycodone [From Percocet] Allergy (Intermediate, Verified 06/25/19 15:11) Rash Primary Care Physician: Jackie Iniguez DO [Primary Care Provider] - Doctors: Dr. Osuna Prior records reviewed: Yes Surgical History: no surgical history Lives: Spouse/ Significant Other Smoking Status: Former smoker Review of Systems General: Denies: Chills, Fever Eyes: Denies: Visual changes - bilaterally ENT: Denies: Bilateral ear pain Cardiovascular: Reports: Chest pain, Palpitations Respiratory: Reports: Dyspnea. Denies: Cough Gastrointestinal: Denies: Abdominal pain, Nausea, Vomiting, Diarrhea Musculoskeletal: Reports: Myalgias. Denies: Swelling, Extremity Pain Skin: Denies: Rash Neurological: Denies: Headache Hematologic: Denies: Easy bruising, Easy bleeding Allergy: Denies: Uticaria Physical Exam Vital Signs/Narrative: Vital Signs Temp Pulse Resp BP Pulse Ox 06/25/19 15:03 99.0 F 84 18 143/85 H 96 Inital Vital Signs reviewed: Yes General: Well nourished, Well developed Head: Normocephalic ENT: Moist mucous membranes Neck: Supple Cardiovascular: Regular rate, Regular rhythm Respiratory: No distress, CTA bilaterally Abdomen: Soft, Nontender Extremities: Nontender Skin: Normal color Neurological: Alert, Oriented x3 Psychological: Normal affect Diagnostic/Tx/Re-eval Impressions Chest X-Ray 06/25/19 15:25 IMPRESSION: Normal x-ray examination of the chest. Electronically Signed: Sesar GrimaldoDO kasia at 15:56 EST Tel , Service support , Chest CTA 06/25/19 16:36 IMPRESSION: Normal CTA chest examination, without a demonstrated pulmonary embolism or arterial dissection. Electronically Signed: Sesargilda GrimaldoDO kasia at 17:07 EST Tel , Service support , 06/25/19 15:25 Chest 1 View (Portable) [RAD] Stat 06/25/19 16:36 CTA Chest W/WO Contrast [CT] Stat Laboratory Results 06/25/19 06/25/19 06/25/19 15:18 15:18 15:18 WBC 8.2 RBC 4.94 Hgb 13.0 Hct 41.3 MCV 83.6 MCH 26.3 L MCHC 31.5 L RDW Std Deviation 49.7 H RDW Coeff of Nidhi 16.3 H Plt Count 377 MPV 10.8 Immature Gran % (Auto) 0.200 Neut % (Auto) 51.6 Lymph % (Auto) 40.9 [place] % (Auto) 5.5 Eos % (Auto) 1.1 Baso % (Auto) 0.7 Absolute Neuts (auto) 4.2 Absolute Lymphs (auto) 3.35 Nucleated RBC % 0 D-Dimer Quant (PE/DVT) 0.65 H* Sodium 138 Potassium 4.0 Chloride 106 Carbon Dioxide 26.0 Anion Gap 6 BUN 7 Creatinine 0.71 Estim Creat Clear Calc 72.63 Est GFR (MDRD) Af Amer 115 Est GFR (MDRD) Non-Af 95 BUN/Creatinine Ratio 9.9 L Glucose 237 H Calcium 9.1 Troponin I < 0.015 - EKG Initial EKG Interpretation: Sinus Rhythm - Sinus at 79 with no acute ischemia. - Medical Decision Making Patient was given IV fluids. Due to her palpitations with PACs she was given 5 mg of Lopressor. Patient states if anything this made her feel worse. When watching division chair PACs were decreased. She was also given a dose of morphine and Zofran for pain. Cardiac evaluation is unremarkable. CTA of the chest is normal. I spoke with Dr. Bryant. We will start the patient on Toprol 50 mg a day as well as get a 24-hour Holter monitor placed. ED Disposition - Plan for ED Patient: Disposition: Home or Assisted Living Diagnosis: Palpitations Instructions: Palpitations Prescriptions: Metoprolol Succinate [Toprol Xl] 50 mg PO DAILY #30 tab.er.24h Transmission Status: Pending to [id number] Referrals: Jackie Iniguez DO [Primary Care Provider] - Jose Osuna MD [STAFF PHYSICIAN] - As soon as possible
[2019-06-25] MEDS: 0.9% Normal Saline 1,000 ML 150 ML IV (15:33)
[2019-06-25] MEDS: Aspirin 81 MG TAB.CHEW 324 MG PO (15:34)
[2019-06-25] MEDS: Metoprolol Tartrate 5 MG/5 ML Vial IV (15:34)
[2019-06-25 16:08] LABS: Absolute Lymphocyte Count 3.35 X10^3/uL (0.83-4.51); Absolute Neutrophil Count 4.2 X10^3/uL (2.0-7.7); Basophil# 0.06 X10^3/uL; Basophil% 0.7 % (0-1); Eosinophil# 0.09 X10^3/uL; Eosinophils% 1.1 % (0-5); Hematocrit 41.3 % (37-47); Lymphocyte # 3.35 X10^3/ul (4.0); Lymphocyte % 40.9 % (19-41); Mean Corp Hgb Conc 31.5 g/dL (32-36); Mean Corpuscular Hgb 26.3 pg (27.0-32.0); Mean Corpuscular Volume 83.6 fL (81-99); Mean Platelet Vol. 10.8 fl (6.2-12.0); Monocyte# 0.45 X10^3/uL; Monocyte% 5.5 % (0-10); NRBC Flagged by Analyzer 0 % (0-5); Neutrophil # 4.22 X10^3/uL (2.7-7.7); Neutrophil % 51.6 % (47-70); Platelet Count 377 K/mm3 (150-450); RBC Distribution Width CV 16.3 % (11.6-14.6); RBC Distribution Width SD 49.7 fl (35.1-43.9); Red Blood Count 4.94 M/mm3 (4.2-5.4); White Blood Count 8.2 K/mm3 (4.4-11.0)
[2019-06-25 16:20] LABS: Anion Gap 6 (5-15); BUN 7 mg/dL (7-18); BUN/Creat Ratio 9.9 RATIO (10-20); Calcium,Total 9.1 mg/dL (8.5-10.1); Chloride 106 mmol/L (98-107); Creatinine, Serum 0.71 mg/dL (0.55-1.02); EST Glomerular Filtration Rate 95 mL/min (>60); Est Glom Filt Rate - Afr Amer 115 mL/min (>60); Estimated Creatinine Clearance 72.63 ml/min; Glucose 237 mg/dL (74-106); Sodium Level 138 mmol/L (136-145)
[2019-06-25] MEDS: Morphine 4 MG/ML Syringe IV (16:31)
[2019-06-25] MEDS: Ondansetron 4 MG/2 ML Vial IV (16:31)
[2019-06-25 16:36] LABS: D-Dimer Quantitative (DVT/PE) 0.65 FEU/ug/m (0.27-0.49)
--- NOTE | 2019-06-25 16:36 | CT_ITS ---
STUDY: CTA CHEST REASON FOR EXAM: Female, 43 years old. PALPITATIONS, GENERAL CHEST HEAVINESS, TIGHT BETWEEN SHOULDERS. RADIATION TO NECK AND JAW. NAUSEA, SOB. RADIATION DOSAGE (If Supplied By Facility): CTDIvol = ( 12.66 ) mGy, DLP = ( 473.87 ) mGycm TECHNIQUE: The examination was performed with the intravenous administration of 100CC ISOVUE 370. Post-processing of the angiographic images was performed, with multiplanar reformation and 3D reconstruction. Individualized dose optimization techniques were used for this CT. COMPARISON: None. FINDINGS: Normal enhancement of the main pulmonary artery and right and left pulmonary arteries. Normal enhancement of the bilateral peripheral pulmonary arteries. There is no demonstrated pulmonary embolism. Normal thoracic aorta and visualized great vessels. There is no demonstrated aortic dissection. Normal heart and pericardium. Normal mediastinum. Normal hilar regions. Normal visualized trachea and bronchi. The lungs are well expanded. Normal pulmonary parenchyma. Normal pleura. Normal chest wall structures. Normal osseous structures. Normal visualized upper abdomen. CT/CTA Chest W/WO Contrast IMPRESSION: Normal CTA chest examination, without a demonstrated pulmonary embolism or arterial dissection. Electronically Signed: Sesar Gant DO at 17:07 EST Tel , Service support ,
[2019-06-25] MEDS: Metoprolol(XL)Succ 50 MG Tablet PO (18:27)
== END 2019-06-25 18:32 | disposition home or self-care (01) ==
PROVIDERS: Emergency Provider Emergency Medicine; PCP Internal Medicine
DX: R00.2 Palpitations (principal); F41.9 Anxiety disorder, unspecified; E11.9 Type 2 diabetes mellitus without complications; Z79.4 Long term (current) use of insulin; Z79.899 Other long term (current) drug therapy; Z87.891 Personal history of nicotine dependence
CPT/HCPCS: 71045; 71275; 80048; 84484; 85025; 85379; 93005; 96361; 96374; 96375; 99284; J7030; Q9967; J2405

== ENCOUNTER → 2019-06-25 | Outpatient (CLI) | payer OTHER, SELFPAY ==
[2019-06-25 15:03] VITALS: BMI 41.3
== END | disposition home or self-care (01) ==
LOC: CVS 17:55
PROVIDERS: PCP Internal Medicine; Visit Provider Internal Medicine Cardiovascular Disease
DX: R00.2 Palpitations (principal)
CPT/HCPCS: 93225; 93226

== ENCOUNTER 2019-07-23 15:25 | Emergency (ER) | payer OTHER, SELFPAY ==
[2019-06-25 15:03] VITALS: BMI 41.3
[2019-07-23 15:25] VITALS: BP 142/82; PULSE 90; RESP 16; TEMP 36.1; O2SAT 98; BMI 41.6
--- NOTE | 2019-07-23 15:53 | ED.VISSUMM ---
- ER Visit Summary Date of Service: 07/23/19 Chief Complaint: Abdominal pain History of Present Illness: The patient is a 43 F presents with abdominal pain that began last night. Patient states it is gradually gotten worse. Patient states pain is over her upper abdomen and radiates into her back. Patient describes her pain as aching and burning. Patient states nothing makes it better or worse. Patient states this feels similar to prior episodes of pancreatitis. Patient admits to nausea but denies any vomiting. Patient denies any diarrhea, melena, or hematochezia. Patient denies any dysuria or hematuria. Patient states her last menstrual period was 1 week ago. Physical Examination: Vital signs are stable. Patient is afebrile. Patient is in no acute distress. Oral mucosa is pink and moist. Neck is supple. Trachea is midline. There is no JVD. Heart was regular rate and rhythm. Lungs are clear and equal bilaterally. Abdomen is soft. Bowel sounds are normal. There is upper abdominal tenderness. There is no rebound or guarding noted. Cranial nerves II through XII are intact. There are no focal motor or sensory deficits. Test Results: CBC, comprehensive metabolic profile, and lipase were obtained and were within normal limits. Emergency Department Course and Treatment: Patient was given IV fluids, morphine, and Zofran. Patient was feeling better on reevaluation. Patient states she takes Protonix at home. Patient was instructed to continue this. Patient was instructed to start with a liquid diet and then advance to a bland diet and then regular diet as she feels better. Patient was instructed to follow-up with her primary care physician in 3 to 5 days. Patient understood and was agreeable with the plan. All questions were answered. Disposition: Discharge home Impression: Abdominal pain This note was generated with [employer] dictation software. It may contain incorrect words, spelling, and punctuation that were not noted in review of the chart prior to signing ED Disposition - Plan for ED Patient: Disposition: Home or Assisted Living Diagnosis: Upper abdominal pain of unknown etiology Instructions: ED Abdominal Pain Unkn Cause Fem Prescriptions: Ondansetron [Zofran Odt] 4 mg PO Q8H PRN PRN #10 tab PRN Reason: Nausea Prescription Printed Referrals: Jackie Iniguez DO [Primary Care Provider] - 3-5 Days
[2019-07-23 16:02] LABS: Absolute Lymphocyte Count 3.05 X10^3/uL (0.83-4.51); Absolute Neutrophil Count 5.7 X10^3/uL (2.0-7.7); Basophil# 0.06 X10^3/uL; Basophil% 0.6 % (0-1); Eosinophils% 1.1 % (0-5); Hematocrit 42.4 % (37-47); Hemoglobin 13.5 g/dL (12.0-15.0); Lymphocyte # 3.05 X10^3/ul (4.0); Lymphocyte % 32.4 % (19-41); Mean Corp Hgb Conc 31.8 g/dL (32-36); Mean Corpuscular Hgb 26.9 pg (27.0-32.0); Mean Corpuscular Volume 84.6 fL (81-99); Mean Platelet Vol. 10.9 fl (6.2-12.0); Monocyte# 0.46 X10^3/uL; Monocyte% 4.9 % (0-10); NRBC Flagged by Analyzer 0 % (0-5); Neutrophil % 60.7 % (47-70); Platelet Count 284 K/mm3 (150-450); RBC Distribution Width CV 16.7 % (11.6-14.6); RBC Distribution Width SD 51.4 fl (35.1-43.9); Red Blood Count 5.01 M/mm3 (4.2-5.4); White Blood Count 9.4 K/mm3 (4.4-11.0)
[2019-07-23] MEDS: Ondansetron 4 MG/2 ML Vial IV (16:02)
[2019-07-23] MEDS: 0.9% Normal Saline 1,000 ML 1000 ML IV (16:02)
[2019-07-23] MEDS: Morphine 4 MG/ML Syringe IV (16:02)
[2019-07-23 16:18] LABS: Lipase 359 U/L (73-393)
[2019-07-23 17:10] LABS: ALB/GLOB Ratio 0.8 RATIO (0.9-2.4); AST(SGOT) 14 U/L (15-37); Alanine Aminotransfer ALT/SGPT 23 U/L (13-56); Albumin, Serum 3.2 g/dL (3.2-5.0); Alkaline Phosphatase 123 U/L (45-117); Anion Gap 9 (5-15); BUN 10 mg/dL (7-18); BUN/Creat Ratio 12.4 RATIO (10-20); Calcium,Total 9.4 mg/dL (8.5-10.1); Chloride 104 mmol/L (98-107); EST Glomerular Filtration Rate 82 mL/min (>60); Est Glom Filt Rate - Afr Amer 99 mL/min (>60); Estimated Creatinine Clearance 64.46 ml/min; Globulin 4.1 g/dL (2.2-4.2); Glucose 351 mg/dL (74-106); Potassium 4.3 mmol/L (3.5-5.1); Protein, Total 7.3 g/dL (6.4-8.2); Sodium Level 137 mmol/L (136-145)
[2019-07-23 17:46] VITALS: BP 110/52
== END 2019-07-23 17:48 | disposition home or self-care (01) ==
PROVIDERS: Emergency Provider Emergency Medicine; PCP Internal Medicine
DX: R10.10 Upper abdominal pain, unspecified (principal); E66.9 Obesity, unspecified; E11.9 Type 2 diabetes mellitus without complications; Z72.0 Tobacco use; Z79.4 Long term (current) use of insulin
CPT/HCPCS: 80053; 83690; 85025; 96361; 96374; 96375; 99284; J7030; A4216; J2405

== ENCOUNTER 2020-03-03 15:24 | Emergency (ER) | payer OTHER, SELFPAY ==
[2019-08-07 13:20] VITALS: BMI 41.6
[2020-03-03 15:26] VITALS: BP 114/77; PULSE 82; RESP 16; TEMP 36.6; O2SAT 97; BMI 41.3
--- NOTE | 2020-03-03 15:54 | ED.VIS.GEN ---
History of Present Illness Informant: Patient Onset: Days - 3 days Context: Gradual Onset Timing: Continuous Quality: aching Location: myalgias Current Severity: Severe Maximum Severity: Severe Worsened by: movement Relieved by: rest Associated Symptoms: Loss of taste and smell nonproductive cough sore throat myalgias headache Narrative: 44-year-old female history of insulin-dependent diabetes mellitus presents to the emergency department with 3 days of generalized weakness and fatigue, chills, sore throat and headache, loss of taste and smell, nonproductive cough and myalgias. No fevers. No vomiting or diarrhea. She is not lightheaded or dizzy. No neck pain. No hemoptysis no chest pain no shortness of breath. No sick contacts. Had a negative rapid Covid test 2 days ago but feels it was a false negative Prior similar symptoms: No Recent Illness/Hospitalization: No <Darek Cruz - Last Filed: 03/03/20 17:27> <Dany Echols - Last Filed: 03/08/20 21:50> Chief Complaint: Weakness Past Medical History Prior records reviewed: Yes Past Medical History: - - Insulin-dependent diabetes mellitus and chronic back pain Surgical History: no surgical history Lives: With Family Smoking Status: Current some day smoker Alcohol: Occasional Drugs: None <Darek Cruz - Last Filed: 03/03/20 17:27> <Dany Echols - Last Filed: 03/08/20 21:50> - Allergies and Home Meds Allergies/Adverse Reactions: Allergies cefaclor [From Ceclor] Allergy (Intermediate, Verified 03/03/20 15:30) Rash hydrocodone [From Vicodin] Allergy (Intermediate, Verified 03/03/20 15:30) Rash oxycodone [From Percocet] Allergy (Intermediate, Verified 03/03/20 15:30) Rash Primary Care Physician: Jackie Iniguez DO [Primary Care Provider] - 3-5 Days Review of Systems All systems negative except as indicated General: Denies: Chills, Fever, Sweats Eyes: Denies: Visual changes - bilaterally, Diplopia ENT: Reports: Rhinorrhea, Sore throat Cardiovascular: Denies: Chest pain, Palpitations Respiratory: Reports: Cough. Denies: Dyspnea, Sputum, Dyspnea on exertion, Orthopnea, Paroxysmal nocturnal dyspnea Gastrointestinal: Denies: Abdominal pain, Nausea, Vomiting, Diarrhea, Constipation, Melena, Hematochezia Genitourinary: Denies: Dysuria, Hematuria, Frequency Musculoskeletal: Reports: Myalgias. Denies: Arthralgias, Neck pain, Back pain, Swelling, Extremity Pain Skin: Denies: Rash, Abscess, Abrasions, Wounds Neurological: Reports: Headache. Denies: Weakness, Parasthesia, Numbness <Darek Cruz - Last Filed: 03/03/20 17:27> Physical Exam Vital Signs/Narrative: Vital Signs Temp Pulse Resp BP Pulse Ox 03/03/20 15:26 97.8 F 82 16 114/77 97 Inital Vital Signs reviewed: Yes General: Well nourished, Well developed, No Acute Distress Head: Normocephalic, Atraumatic Eyes: Perrl, EOMI ENT: Moist mucous membranes, No rhinorrhea Neck: Supple, Nontender Cardiovascular: Regular rate, Regular rhythm, No murmurs Respiratory: No distress, CTA bilaterally, Chest nontender Abdomen: Soft, Nontender, Nondistended, Normal bowel sounds Back: Nontender, Normal Inspection Extremities: Nontender, No edema Skin: Normal color, No rash Neurological: Alert, Oriented x3, Cranial nerves II-XII grossly intact, Normal Strength, Normal Sensation Psychological: Normal affect, Normal Mood <Darek Cruz - Last Filed: 03/03/20 17:27> Diagnostic/Tx/Re-eval Chest X-Ray - ED: 1 View, Read by ED Physician, Read by Radiologist, No Acute Disease Impressions Chest X-Ray 03/03/20 16:30 IMPRESSION: Stable, nonacute portable x-ray examination of the chest. Electronically Signed: Cholo Kirby MD ([place]) at 16:49 EST , Service support , 03/03/20 16:30 Chest 1 View (Portable) [RAD] Stat Laboratory Results 03/03/20 03/03/20 03/03/20 16:10 16:10 16:40 WBC 7.6 RBC 4.74 Hgb 9.9 L Hct 33.9 L MCV 71.5 L MCH 20.9 L MCHC 29.2 L RDW Std Deviation 41.4 RDW Coeff of Nidhi 16.0 H Plt Count 252 MPV 11.9 Immature Gran % (Auto) 0.400 Neut % (Auto) 66.1 Lymph % (Auto) 25.6 [place] % (Auto) 6.2 Eos % (Auto) 1.2 Baso % (Auto) 0.5 Absolute Neuts (auto) 5.1 Absolute Lymphs (auto) 1.95 Nucleated RBC % 0 Sodium 138 Potassium 4.6 Chloride 103 Carbon Dioxide 30.0 Anion Gap 5 BUN 7 Creatinine 0.64 Estim Creat Clear Calc 79.73 Est GFR (MDRD) Af Amer 128 Est GFR (MDRD) Non-Af 106 BUN/Creatinine Ratio 10.9 Glucose 258 H Calcium 9.6 Urine Color Yellow Urine Clarity Clear Urine pH 6.0 Ur Specific [place] 1.015 Urine Protein 15 H Urine Glucose (UA) 1000 H Urine Ketones Negative Urine Occult Blood Negative Urine Nitrite Negative Urine Bilirubin Negative Urine Urobilinogen Normal Ur Leukocyte Esterase Negative Urine RBC 0 SEEN Urine WBC 0 SEEN Ur Squamous Epith Cells 0 SEEN Urine Bacteria 0 SEEN Urine Mucus 0 SEEN - Medical Decision Making 44-year-old female presents with symptoms concerning for COVID-19. She was given IV fluids. Patient was given a migraine cocktail for her migraine. Patient's laboratory work-up was remarkable for a CBC resulting with a hemoglobin of 9.9 with a microcytic anemia. The rest of her labs are unremarkable. Urine is negative as was chest x-ray. Patient states she has a history of iron deficiency anemia. She has been noncompliant with her iron therapy. She denies melena hematochezia or other symptoms of bleeding. Patient has no lightheadedness or dizziness at this time. Stressed importance to patient of restarting iron therapy and following up closely with her doctor for routine monitoring of her anemia. Vital signs stable she feels well after treatment and will be discharged home with an outpatient COVID-19 test and she will remain in quarantine until those results are returned <Darek Cruz - Last Filed: 03/03/20 17:27> - Medical Decision Making Patient was independently seen by me. She presents with upper respiratory symptoms. She did have an outpatient Covid test performed 2 days ago. Test was apparently negative. Patient feels this is a false negative. There is a history of iron deficiency anemia. She has not been compliant with medication. Vital signs noted. Vital signs are normal. HEENT exam is unremarkable. Heart is regular. Lungs are clear auscultation. Blood work is unremarkable. Patient chest x-ray was interpreted by me. Was a single view. The chest x-ray revealed no acute abnormality. Patient was discharged home with appropriate home-going instructions. <Dany Echols - Last Filed: 03/08/20 21:50> ED Disposition <Darek Cruz - Last Filed: 03/03/20 17:27> <Dany Echols - Last Filed: 03/08/20 21:50> - Plan for ED Patient: Disposition: Home or Assisted Living Diagnosis: COVID-19, Chronic iron deficiency anemia, Diabetes Instructions: ED Anemia Iron Deficiency, ED URI Viral Referrals: Jackie Iniguez DO [Primary Care Provider] - 3-5 Days Additional Instructions: Please take your iron as prescribed and follow-up closely with your primary care provider for repeat labs this week and continue to monitor for symptoms of bleeding as we discussed
[2020-03-03] MEDS: 0.9% Normal Saline 1,000 ML 1000 ML IV (16:10)
[2020-03-03] MEDS: Metoclopramide 10 MG/2 ML Vial IV (16:11)
[2020-03-03] MEDS: DiphenhydrAMINE 50 MG/ML Syringe IV (16:11)
[2020-03-03] MEDS: Ketorolac 15 MG/ML Vial IV (16:11)
--- NOTE | 2020-03-03 16:30 | RAD_ITS ---
STUDY: X-RAY CHEST REASON FOR EXAM: Female, 44 years old. LOSS OF TASTE AND SMELL X3 DAYS. WEAKNESS, HEADACHE. BODY ACHES. RECENT NEGATIVE COVID TEST TECHNIQUE: AP COMPARISON: 06/25/2019 FINDINGS: The lungs are clear and expanded. There is no demonstrated pleural abnormality. Normal size heart. Normal mediastinum and torsten. Normal visualized pulmonary arteries. Normal visualized aortic arch and descending thoracic aorta. Normal visualized thoracic spine. Normal visualized ribs, clavicles, and shoulders. There is no demonstrated abnormality of the visualized soft tissue structures of the upper abdomen. RAD/Chest 1 View (Portable) IMPRESSION: Stable, nonacute portable x-ray examination of the chest. Electronically Signed: Cholo Kirby MD ([place]) at 16:49 EST , Service support ,
[2020-03-03 16:47] LABS: Absolute Lymphocyte Count 1.95 X10^3/uL (0.83-4.51); Absolute Neutrophil Count 5.1 X10^3/uL (2.0-7.7); Basophil# 0.04 X10^3/uL; Basophil% 0.5 % (0-1); Eosinophil# 0.09 X10^3/uL; Eosinophils% 1.2 % (0-5); Hematocrit 33.9 % (37-47); Hemoglobin 9.9 g/dL (12.0-15.0); Lymphocyte # 1.95 X10^3/ul (4.0); Lymphocyte % 25.6 % (19-41); Mean Corp Hgb Conc 29.2 g/dL (32-36); Mean Corpuscular Hgb 20.9 pg (27.0-32.0); Mean Corpuscular Volume 71.5 fL (81-99); Mean Platelet Vol. 11.9 fl (6.2-12.0); Monocyte# 0.47 X10^3/uL; Monocyte% 6.2 % (0-10); NRBC Flagged by Analyzer 0 % (0-5); Neutrophil # 5.05 X10^3/uL (2.7-7.7); Neutrophil % 66.1 % (47-70); Platelet Count 252 K/mm3 (150-450); RBC Distribution Width SD 41.4 fl (35.1-43.9); Red Blood Count 4.74 M/mm3 (4.2-5.4); White Blood Count 7.6 K/mm3 (4.4-11.0)
[2020-03-03 16:47] LABS: Bacteria 0 SEEN /hpf (None Seen); Mucous, Urine 0 SEEN /hpf (<or=2+); Red Blood Cells-Urine 0 SEEN /hpf (0-5); Squamous Epithelial Cells - UA 0 SEEN /hpf (5-10); White Blood Cells 0 SEEN /hpf (0-5)
[2020-03-03 16:48] LABS: Color, Urine Yellow (Yellow); Glucose, Dipstick 1000 mg/dl (Normal); Ketone-Dipstick Negative (Negative); Leukocyte Esterase-Dipstick Negative /ul (Negative); Nitrite-Dipstick Negative (Negative); Occult Blood-Urine Negative /ul (Negative); Protein-Dipstick 15 mg/dl (Negative); Specific Gravity, Urine 1.015 (1.002-1.030); Urine Bilirubin Dipstick Negative (Negative); Urine Clarity Clear (Clear); Urine Urobilinogen Normal (Normal)
[2020-03-03 16:50] LABS: POSITIVE COUNT NO; POSITIVE DIFFERENTIAL NO; POSITIVE MORPHOLOGY NO
[2020-03-03 16:53] LABS: Anion Gap 5 (5-15); BUN 7 mg/dL (7-18); BUN/Creat Ratio 10.9 RATIO (10-20); Calcium,Total 9.6 mg/dL (8.5-10.1); Chloride 103 mmol/L (98-107); Creatinine, Serum 0.64 mg/dL (0.55-1.02); EST Glomerular Filtration Rate 106 mL/min (>60); Est Glom Filt Rate - Afr Amer 128 mL/min (>60); Estimated Creatinine Clearance 79.73 ml/min; Glucose 258 mg/dL (74-106); Potassium 4.6 mmol/L (3.5-5.1); Sodium Level 138 mmol/L (136-145)
[2020-03-03 17:57] VITALS: BP 115/55; PULSE 76; RESP 16; O2SAT 94
== END 2020-03-03 18:00 | disposition home or self-care (01) ==
PROVIDERS: Emergency Provider Physician Assistant Medical; PCP Internal Medicine
DX: U07.1 COVID-19 (principal); D50.9 Iron deficiency anemia, unspecified; E11.9 Type 2 diabetes mellitus without complications; F17.200 Nicotine dependence, unspecified, uncomplicated; Z79.4 Long term (current) use of insulin; Z91.14 Patient's other noncompliance with medication regimen
CPT/HCPCS: 71045; 80048; 81001; 85025; 87635; 96361; 96374; 96375; 99282; J7030; A4216; U0003